=== PATIENT | female | born 1965 | race Hispanic/Latino ===

== ENCOUNTER → 2018-03-02 | Day surgery (SDC) | payer OTHER ==
[2018-02-27 16:59] LABS: BASOPHILS # (AUTO) 0.1 (0.0-0.1); BASOPHILS % 0.4 % (0.0-1.0); EOSINOPHILS # (AUTO) 0.5 (0.0-0.4); EOSINOPHILS % 3.4 % (0.0-6.0); HEMATOCRIT 43.8 % (34.2-44.1); HEMOGLOBIN 13.8 g/dL (12.0-16.0); LYMPHOCYTES # (AUTO) 2.4 (1.0-3.2); LYMPHOCYTES % 17.4 % (18.0-39.1); MEAN CORPUSCULAR HEMOGLOBIN 27.7 pg (28-32); MEAN CORPUSCULAR HGB CONC 31.5 g/dL (31-35); MONOCYTES # (AUTO) 1.1 (0.2-0.8); MONOCYTES % 7.9 % (4.4-11.3); NEUTROPHILS # (AUTO) 9.7 (2.1-6.9); NEUTROPHILS % 70.5 % (38.7-80.0); PLATELET COUNT 362 x10e3/uL (140-360); RED BLOOD COUNT 4.98 x10e6/uL (3.6-5.1); RED CELL DISTRIBUTION WIDTH 14.5 % (11.7-14.4)
[~2018-03-02] MED LIST: ASPIR 8181 MG PO; ATORVASTATIN CA20 MG PO; FENTANYL CITRATE/PF 100MCG/2 ML INJ ONE; HYOSCYAMINE SULFATE 0.5 MG/ML INJ ONE; INVOKANA PO; IRBESARTAN-HCT1 EACH PO; JANUMET 50-1,01 EACH PO; LANTUS 3ML100 UNITS/ SC; LYRICA75 MG PO; METOPROLOL SUCC50 MG PO; MIDAZOLAM HCL 5MG/ML 2ML VIAL ONE; PLAVIX75 MG PO; PROPOFOL IV EMULSION 10 MG/ML 50 ML VIAL ONE
--- OUTSIDE RECORDS SUMMARY | 2018-03-02 11:13 | XMS REPORT | Continuity of Care Document ---
Author Author [facility] [place] [place] Organization [facility] [place] [place] Address Unknown Phone Unavailable Care Team Providers Care Etiquette Coach Name Role Phone MD Anthony, David WEST Unavailable Insurance Providers Payer name Policy type / Coverage type Policy ID Covered libertarian ID Policy [place] AETNA AETNA Encounters Encounter Performer Location Date Office Visit David Cruz MD [facility] Sep 02, 2013 Problems Problem Effective Dates Problem Status FH DIABETES - DM Active FH STROKE Active HYPERCHOLESTEROLEMIA Active HYPERTENSION - BENIGN ESSENTIAL Active POLYNEUROPATHY IN DIABETES Jul 01, 2013 Active 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 normal aspiration Sep 02, 2013 diabetic foot check yes Medications Medication Instructions Start Date Status VALSARTAN-HYDROCHLOROTHIAZIDE 320-25 MG TABS One by mouth daily for high blood pressure Jul 01, 2013 Active AMMONIUM LACTATE 12 % CREA apply to callous each night Jul 01, 2013 Active PRAVASTATIN SODIUM 40 MG TABS 1/2 po qd Jul 01, 2013 Inactive ATORVASTATIN CALCIUM 20 MG TABS 1 tablet each night Jul 04, 2013 Active LANTUS SOLOSTAR 100 UNIT/ML SOLN 10 units subcutaneous at bedtime. Titrate as directed Jul 11, 2013 Active BD PEN NEEDLE MINI U/F 31G X 5 MM MISC Use as directed Jul 11, 2013 Active GABAPENTIN 300 MG CAPS Take one capsule by mouth each night for nerve pain Sep 02, 2013 Active INVOKANA 300 MG TABS One by mouth daily for diabetes Sep 02, 2013 Active JANUMET 50-1000 MG TABS 1 po bid Sep 02, 2013 Active Immunizations Vaccine Date Status pneumococcal immunization administered Jul 01, 2013 completed dT (Diphtheria and Tetanus) booster given May 09, 2012 completed Vital Signs Date Description Test Result Jul 01, 2013 height E&M - 8302-2 HEIGHT 62 in Jul 01, 2013 weight E&M - 3141-9 WEIGHT 211 lb Jul 01, 2013 respiratory rate E&M - 9279-1 RESP RATE 18 /min Jul 01, 2013 temperature E&M TEMPERATURE 98.7 deg f Jul 01, 2013 pulse rate E&M - 8867-4 PULSE RATE 93 /min Jul 01, 2013 blood pressure, systolic - 8480-6 BP SYSTOLIC 143 mm Hg Jul 01, 2013 blood pressure, diastolic - 8462-4 BP DIASTOLIC 89 mm Hg Sep 02, 2013 weight E&M - 3141-9 WEIGHT 209 lb Sep 02, 2013 temperature E&M TEMPERATURE 98.9 deg f Sep 02, 2013 blood pressure, systolic - 8480-6 BP SYSTOLIC 135 mm Hg Sep 02, 2013 blood pressure, diastolic - 8462-4 BP DIASTOLIC 74 mm Hg Sep 02, 2013 pulse rate E&M - 8867-4 PULSE RATE 79 /min Results Date Description Test Name Value Reference Interpretation Status Jul 01, 2013 hemoglobin, blood HGB 13.7 g/dL 12.0-16.0 Jul 01, 2013 hematocrit, blood HCT 41.3 % 36.0-48.0 Jul 01, 2013 platelet count PLATELETS 393 K/CMM /mm3 133-450 Jul 01, 2013 urine color UA COLOR Yellow null Yellow Jul 01, 2013 bacteria, urine microscopy BACTERIA URN Occasional null None Seen Jul 01, 2013 hemoglobin A1C, blood, as % of total hemoglobin HGBA1C 11.9 % <=5.6 High Jul 01, 2013 thyroid stimulating hormone, serum TSH 4.130 uIU/mL 0.360-3.740 High Jul 01, 2013 cholesterol, serum CHOLESTEROL 216 mg/dl <=199 High Jul 01, 2013 triglyceride, serum, fasting TRIGLYCERIDE 125 mg/dl <=149 Jul 01, 2013 HDL cholesterol, serum HDL 44 mg/dl >=61 Low Jul 01, 2013 LDL cholesterol, serum LDL 147 mg/dl <=99 High Jul 01, 2013 sodium, serum SODIUM 135 MEQ/L mmol/L 135-145 Jul 01, 2013 potassium, serum POTASSIUM 4.7 MEQ/L mmol/L 3.5-5.1 Jul 01, 2013 creatinine, serum CREATININE 0.5 mg/dL 0.5-1.4 Jul 01, 2013 urea nitrogen, blood BUN 18 mg/dL 7-Jul 01, 2013 urea nitrogen/creatinine ratio, serum BUN/CREAT 36 null 6-25 High Jul 01, 2013 albumin, serum ALBUMIN 4.3 g/dL 3.5-5.0 Jul 01, 2013 calcium, serum CALCIUM 9.5 mg/dL 8.5-10.5 Jul 01, 2013 alanine aminotransferase (SGPT), serum SGPT (ALT) 36 U/L 0-65 Jul 01, 2013 aspartate aminotransferase (SGOT), serum SGOT (AST) 15 U/L 0-37 Jul 01, 2013 alkaline phosphatase, serum ALK PHOS 141 U/L 39-136 High Jul 01, 2013 thyroxine, serum, free T4, FREE 0.97 ng/dl 0.76-1.46 Sep 02, 2013 hemoglobin A1C, blood, as % of total hemoglobin HGBA1C 12.4 % <=5.6 High Sep 02, 2013 cholesterol, serum CHOLESTEROL 173 mg/dl <=199 Sep 02, 2013 triglyceride, serum, fasting TRIGLYCERIDE 144 mg/dl <=149 Sep 02, 2013 HDL cholesterol, serum HDL 44 mg/dl >=61 Low Sep 02, 2013 LDL cholesterol, serum LDL 100 mg/dl <=99 High Sep 02, 2013 sodium, serum SODIUM 135 MEQ/L mmol/L 135-145 Sep 02, 2013 potassium, serum POTASSIUM 4.1 MEQ/L mmol/L 3.5-5.1 Sep 02, 2013 creatinine, serum CREATININE 0.5 mg/dL 0.5-1.4 Sep 02, 2013 urea nitrogen, blood BUN 14 mg/dL 7-Sep 02, 2013 urea nitrogen/creatinine ratio, serum BUN/CREAT 28 null 6-25 High Sep 02, 2013 albumin, serum ALBUMIN 4.3 g/dL 3.5-5.0 Sep 02, 2013 calcium, serum CALCIUM 9.7 mg/dL 8.5-10.5 Sep 02, 2013 alanine aminotransferase (SGPT), serum SGPT (ALT) 37 U/L 0-65 Sep 02, 2013 aspartate aminotransferase (SGOT), serum SGOT (AST) 15 U/L 0-37 Sep 02, 2013 alkaline phosphatase, serum ALK PHOS 149 U/L 39-136 High
--- OUTSIDE RECORDS SUMMARY | 2018-03-02 11:13 | XMS REPORT | Continuity of Care Document ---
Author Author [facility] Address Unknown Phone Unavailable Problems Problem Status Onset Date Classification Date Reported Comments Source LONG-TERM USE OF INSULIN Active 08/06/2014 Condition 08/06/2014 [facility] OSTEOARTHRITIS, KNEES, BILATERAL Active 08/06/2014 Condition 08/06/2014 [facility] DIABETES MELLITUS WITH PERIPHERAL CIRCULATORY DISORDERS, TYPE II OR UNSPECIFIED TYPE, NOT STATED UNCONTROLLED Active 08/06/2014 Condition 08/06/2014 [facility] UNSPECIFIED ESSENTIAL HYPERTENSION Active 06/11/2014 08/03/2014 [facility] DIAB W/NEURO MANIFEST TYPE II OR UNSPEC UNCNTRL Active 06/11/2014 08/03/2014 [facility] 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 Active 06/11/2014 08/03/2014 [facility] MUSCLE WEAKNESS Active 06/11/2014 08/03/2014 [facility] AFTERCARE FOLLOW SURG CIRC SYS NEC Active 06/10/2014 08/03/2014 [facility] COR ATHEROSLERO SAUK-SUIATTLE COR ART Active 06/06/2014 06/12/2014 [facility] COR ATHEROSLERO AUTOL VEIN BYPS GFT Active 05/26/2014 08/03/2014 [facility] OTHER AND UNSPECIFIED HYPERLIPIDEMIA Active 05/26/2014 08/03/2014 [facility] MORBID OBESITY Active 05/26/2014 08/03/2014 [facility] DIABETES MELLITUS, TYPE II, WITH RETINOPATHY Active 05/23/2014 Condition 08/06/2014 [facility] NONPROLIFERATIVE DIABETIC RETINOPATHY NOS Active 05/23/2014 Condition 08/06/2014 [facility] CHEST PAIN UNSPECIFIED Active 05/16/2014 Condition 05/16/2014 [facility] CORONARY ATHEROSCLEROSIS OF UNSPECIFIED TYPE OF BYPASS GRAFT Active 05/16/2014 Condition 08/06/2014 [facility] HYPERTENSIVE HEART DISEASE, BENIGN, WITHOUT HEART FAILURE Active 04/03/2014 Condition 08/06/2014 [facility] ABDOMINAL PAIN, RIGHT UPPER QUADRANT Active 12/20/2013 Condition 08/06/2014 [facility] CARPAL TUNNEL SYNDROME Active 12/20/2013 Condition 08/06/2014 [facility] ONYCHOMYCOSIS, TOENAILS Inactive 12/20/2013 Condition 08/06/2014 [facility] UNSPECIFIED VENOUS INSUFFICIENCY Active 09/02/2013 Condition 08/06/2014 [facility] MICROALBUMINURIA Active 07/23/2013 Condition 08/06/2014 [facility] DIAB W/RENAL MANIFESTS TYPE II/UNS NOT UNCNTRL Active 07/23/2013 Condition 08/06/2014 [facility] UNSPECIFIED HYPOTHYROIDISM Active 07/23/2013 Condition 08/06/2014 [facility] POLYNEUROPATHY IN DIABETES Active 07/01/2013 Condition 08/06/2014 [facility] DIAB W/NEURO MANIFESTS TYPE II/UNS NOT UNCNTRL Active 07/01/2013 Condition 08/06/2014 [facility] UNSPECIFIED SLEEP APNEA Active 07/01/2013 Condition 08/06/2014 [facility] CALLUS, FOOT Active 07/01/2013 Condition 08/06/2014 [facility] MAMMOGRAM, ABNORMAL, RIGHT Active 09/28/2012 Condition 08/06/2014 [facility] UNSPECIFIED VITAMIN D DEFICIENCY Active 04/03/2012 Condition 08/06/2014 [facility] PERS HX NONCOMPLIANCE W/MED TX PRS HAZARDS HLTH Active 04/03/2012 Condition 08/06/2014 [facility] FH DIABETES - DM Inactive Condition 08/06/2014 [facility] FH STROKE Inactive Condition 08/06/2014 [facility] HYPERCHOLESTEROLEMIA Active Condition 08/06/2014 [facility] HYPERTENSION - BENIGN ESSENTIAL Active Condition 05/16/2014 [facility] Medications Medication Details Route Status Patient Instructions Ordering Provider Order Date Source IRBESARTAN 150 MG TABS one by mouth daily for high blood pressure Active 08/06/2014 [facility] TEST STRIPS AND LANCETS For use with the glucometer to check sugars twice a day as directed. Dx: 250.00 diabetes; V58.67 Insulin use Active 08/06/2014 [facility] VOLTAREN 1 % GEL Apply 4 grams to the painful KNEE four times a day Active 08/06/2014 [facility] CLOPIDOGREL BISULFATE 75 MG TABS Active 08/06/2014 [facility] FUROSEMIDE 40 MG TABS Active 08/06/2014 [facility] METOPROLOL TARTRATE 50 MG TABS Active 08/06/2014 [facility] atorvastatin oral Active 06/10/2014 [facility] valsartan oral Active 06/10/2014 [facility] clopidogrel oral Active 06/10/2014 [facility] Nitrostat sublingual Active 06/10/2014 [facility] metoprolol tartrate oral Active 06/10/2014 [facility] Ultram oral Active 06/10/2014 [facility] gabapentin oral Active 06/10/2014 [facility] Lantus subcutaneous Active 06/10/2014 [facility] Aspirin Low Dose oral Active 06/10/2014 [facility] Janumet oral Active 06/10/2014 [facility] Invokana oral Active 06/10/2014 [facility] Doc-Q-Lace oral TAKE ONE CAP BY MOUTH TWICE DAILY NEEDED FOR CONSTIPATION Active 06/06/2014 [facility] INVOKANA 300 MG TABS one by mouth daily Active 05/16/2014 [facility] ATORVASTATIN CALCIUM 20 MG TABS 1 tablet nightly Active 05/16/2014 [facility] JANUMET XR 50-1000 MG [id number] 1 tablet twice daily Active 05/16/2014 [facility] DIOVAN HCT 320-25 MG TABS 1 tablet daily for high blood pressure No Longer Active 05/16/2014 [facility] LANTUS SOLOSTAR 100 UNIT/ML SOPN 22 units every night. titrate as directed Active 05/16/2014 [facility] ASPIRIN ADULT LOW STRENGTH 81 MG TBEC one by mouth daily for heart Active 05/16/2014 [facility] NITROSTAT 0.4 MG SUBL one tablet disolved under the tongue as needed for chest pain, may repeat every 5 minutes if needed x 3 total doses Active 05/16/2014 [facility] TERBINAFINE HCL 250 MG TABS 1 tablet daily for 12 weeks Active 12/20/2013 [facility] TERBINAFINE HCL 250 MG TABS 1 tablet daily for 12 weeks No Longer Active 12/20/2013 [facility] GABAPENTIN 300 MG CAPS Take one capsule by mouth each night for nerve pain Active 09/02/2013 [facility] INVOKANA 300 MG TABS One by mouth daily for diabetes No Longer Active 09/02/2013 [facility] JANUMET 50-1000 MG TABS 1 po bid No Longer Active 09/02/2013 [facility] GABAPENTIN 300 MG CAPS Take one capsule by mouth each night for nerve pain Active 09/02/2013 [facility] INVOKANA 300 MG TABS One by mouth daily for diabetes Active 09/02/2013 [facility] GABAPENTIN 300 MG CAPS Take one capsule by mouth each night for nerve pain Active 09/02/2013 [facility] GABAPENTIN 400 MG CAPS 2 capsules by mouth each night as needed for nerve pain. Active 09/02/2013 [facility] LANTUS SOLOSTAR 100 UNIT/ML SOLN 10 units subcutaneous at bedtime. Titrate as directed Active 07/11/2013 [facility] BD PEN NEEDLE MINI U/F 31G X 5 MM MISC Use as directed Active 07/11/2013 [facility] LANTUS SOLOSTAR 100 UNIT/ML SOLN 22 units subcutaneous at bedtime. Titrate as directed Active 07/11/2013 [facility] LANTUS SOLOSTAR 100 UNIT/ML SOLN 22 units subcutaneous at bedtime. Titrate as directed No Longer Active 07/11/2013 [facility] ATORVASTATIN CALCIUM 20 MG TABS 1 tablet each night No Longer Active 07/04/2013 [facility] ATORVASTATIN CALCIUM 20 MG TABS 1 tablet each night Active 07/04/2013 [facility] GLYBURIDE MICRONIZED 6 MG TABS 1 po bid Active 07/01/2013 [facility] PRAVASTATIN SODIUM 40 MG TABS 1/2 po qd No Longer Active 07/01/2013 [facility] JANUMET 50-1000 MG TABS 1 po bid Active 07/01/2013 [facility] VALSARTAN-HYDROCHLOROTHIAZIDE 320-25 MG TABS One by mouth daily for high blood pressure No Longer Active 07/01/2013 [facility] AMMONIUM LACTATE 12 % CREA apply to callous each night No Longer Active 07/01/2013 [facility] Allergies, Adverse Reactions, Alerts Substance Category Reaction Severity Reaction type Status Date Reported Comments Source NKA Propensity to adverse reactions Home Health Immunizations Immunization Date Given Site Status Last Updated Comments Source pneumococcal immunization administered 07/01/2013 completed [facility] dT (Diphtheria and Tetanus) booster given 05/09/2012 completed [facility] Results Order Name Results Value Reference Range Date Interpretation Comments Source Chemistry HGBA1C 6.8 % - 5.6 08/06/2014 [facility] Chemistry HGBA1C 9.9 % - 5.6 05/16/2014 [facility] Chemistry CHOLESTEROL 175 mg/dl - 199 05/16/2014 [facility] TRIGLYCERIDE 142 mg/dl - 149 05/16/2014 [facility] Chemistry HDL 48 mg/dl >=61 05/16/2014 [facility] LDL 99 mg/dl - 99 05/16/2014 [facility] Chemistry SODIUM 137 MEQ/L mmol/L 135 - 145 05/16/2014 [facility] Chemistry POTASSIUM 4.5 MEQ/L mmol/L 3.5 - 5.1 05/16/2014 [facility] Chemistry CREATININE 0.5 mg/dL 0.5 - 1.4 05/16/2014 [facility] Chemistry BUN 16 mg/dL 7 - 22 05/16/2014 [facility] Chemistry BUN/CREAT 32 6 - 25 05/16/2014 [facility] Chemistry ALBUMIN 4.2 g/dL 3.5 - 5.0 05/16/2014 [facility] Chemistry CALCIUM 9.6 mg/dL 8.5 - 10.5 05/16/2014 [facility] Chemistry SGPT (ALT) 35 U/L 0 - 65 05/16/2014 [facility] Chemistry SGOT (AST) 17 U/L 0 - 37 05/16/2014 [facility] Chemistry ALK PHOS 136 U/L 39 - 136 05/16/2014 [facility] Chemistry MAGNESIUM 2.1 mg/dL 1.8 - 2.4 05/16/2014 [facility] Chemistry PO4 3.6 mg/dL 2.5 - 4.5 05/16/2014 [facility] Chemistry URIC ACID 4.3 mg/dL 2.5 - 7.0 05/16/2014 [facility] Chemistry TSH 2.970 uIU/mL 0.360 - 3.740 05/16/2014 [facility] Hematology HGB 14.3 g/dL 12.0 - 16.0 05/16/2014 [facility] Hematology HCT 42.9 % 36.0 - 48.0 05/16/2014 [facility] Hematology PLATELETS 332 K/CMM /mm3 133 - 450 05/16/2014 [facility] Chemistry HGBA1C 12.4 % - 5.6 09/02/2013 [facility] Chemistry CHOLESTEROL 173 mg/dl - 199 09/02/2013 [facility] Chemistry TRIGLYCERIDE 144 mg/dl - 149 09/02/2013 [facility] Chemistry HGBA1C 12.4 % - 5.6 09/02/2013 [facility] Chemistry CHOLESTEROL 173 mg/dl - 199 09/02/2013 [facility] Chemistry TRIGLYCERIDE 144 mg/dl - 149 09/02/2013 [facility] Chemistry HDL 44 mg/dl >=61 09/02/2013 [facility] Chemistry LDL 100 mg/dl - 99 09/02/2013 [facility] Chemistry SODIUM 135 MEQ/L mmol/L 135 - 145 09/02/2013 [facility] Chemistry POTASSIUM 4.1 MEQ/L mmol/L 3.5 - 5.1 09/02/2013 [facility] Chemistry CREATININE 0.5 mg/dL 0.5 - 1.4 09/02/2013 [facility] Chemistry BUN 14 mg/dL 7 - 22 09/02/2013 [facility] Chemistry BUN/CREAT 28 6 - 25 09/02/2013 [facility] Chemistry ALBUMIN 4.3 g/dL 3.5 - 5.0 09/02/2013 [facility] Chemistry CALCIUM 9.7 mg/dL 8.5 - 10.5 09/02/2013 [facility] Chemistry SGPT (ALT) 37 U/L 0 - 65 09/02/2013 [facility] Chemistry SGOT (AST) 15 U/L 0 - 37 09/02/2013 [facility] Chemistry ALK PHOS 149 U/L 39 - 136 09/02/2013 [facility] Chemistry HGBA1C 11.9 % - 5.6 07/01/2013 [facility] Chemistry TSH 4.130 uIU/mL 0.360 - 3.740 07/01/2013 [facility] Chemistry CHOLESTEROL 216 mg/dl - 199 07/01/2013 [facility] Chemistry HGBA1C 11.9 % - 5.6 07/01/2013 [facility] Chemistry TSH 4.130 uIU/mL 0.360 - 3.740 07/01/2013 [facility] Chemistry CHOLESTEROL 216 mg/dl - 199 07/01/2013 [facility] Chemistry TRIGLYCERIDE 125 mg/dl - 149 07/01/2013 [facility] Chemistry HDL 44 mg/dl >=61 07/01/2013 [facility] Chemistry LDL 147 mg/dl - 99 07/01/2013 [facility] Chemistry SODIUM 135 MEQ/L mmol/L 135 - 145 07/01/2013 [facility] Chemistry POTASSIUM 4.7 MEQ/L mmol/L 3.5 - 5.1 07/01/2013 [facility] Chemistry CREATININE 0.5 mg/dL 0.5 - 1.4 07/01/2013 [facility] Chemistry BUN 18 mg/dL 7 - 22 07/01/2013 [facility] Chemistry BUN/CREAT 36 6 - 25 07/01/2013 [facility] Chemistry ALBUMIN 4.3 g/dL 3.5 - 5.0 07/01/2013 [facility] Chemistry CALCIUM 9.5 mg/dL 8.5 - 10.5 07/01/2013 [facility] Chemistry SGPT (ALT) 36 U/L 0 - 65 07/01/2013 [facility] Chemistry SGOT (AST) 15 U/L 0 - 37 07/01/2013 [facility] Chemistry ALK PHOS 141 U/L 39 - 136 07/01/2013 [facility] Chemistry T4, FREE 0.97 ng/dl 0.76 - 1.46 07/01/2013 [facility] Hematology HGB 13.7 g/dL 12.0 - 16.0 07/01/2013 [facility] Hematology HCT 41.3 % 36.0 - 48.0 07/01/2013 [facility] Hematology PLATELETS 393 K/CMM /mm3 133 - 450 07/01/2013 [facility] Urinalysis UA COLOR Yellow 07/01/2013 [facility] Urinalysis BACTERIA URN Occasional 07/01/2013 [facility] Urinalysis UA COLOR Yellow 07/01/2013 [facility] Urinalysis BACTERIA URN Occasional 07/01/2013 [facility] Vital Signs Vital Sign Value Date Comments Source Weight 204 08/06/2014 [facility] Systolic (mm Hg) 153 08/06/2014 [facility] Diastolic (mm Hg) 78 08/06/2014 [facility] Heart Rate 102 08/06/2014 [facility] Temperature Oral (F) 97.3 F 08/06/2014 [facility] Weight 198 08/01/2014 [facility] Systolic (mm Hg) 100 08/01/2014 [facility] Diastolic (mm Hg) 60 08/01/2014 [facility] Heart Rate 90 08/01/2014 [facility] Temperature Oral (F) 97.1 F 08/01/2014 [facility] Systolic (mm Hg) 120 06/11/2014 [facility] Diastolic (mm Hg) 70 06/11/2014 [facility] Heart Rate 94 06/11/2014 [facility] Temperature Oral (F) 97.6 F 06/11/2014 [facility] Weight 209 05/16/2014 [facility] Temperature Oral (F) 97.8 F 05/16/2014 [facility] Systolic (mm Hg) 143 05/16/2014 [facility] Diastolic (mm Hg) 69 05/16/2014 [facility] Heart Rate 80 05/16/2014 [facility] Weight 209 12/20/2013 [facility] Temperature Oral (F) 96.1 F 12/20/2013 [facility] Systolic (mm Hg) 139 12/20/2013 [facility] Diastolic (mm Hg) 81 12/20/2013 [facility] Heart Rate 82 12/20/2013 [facility] Weight 209 09/02/2013 [facility] Temperature Oral (F) 98.9 F 09/02/2013 [facility] Systolic (mm Hg) 135 09/02/2013 [facility] Diastolic (mm Hg) 74 09/02/2013 [facility] Heart Rate 79 09/02/2013 [facility] Height 62 07/01/2013 [facility] Weight 211 07/01/2013 [facility] Respitory Rate 18 07/01/2013 [facility] Temperature Oral (F) 98.7 F 07/01/2013 [facility] Heart Rate 93 07/01/2013 [facility] Systolic (mm Hg) 143 07/01/2013 [facility] Diastolic (mm Hg) 89 07/01/2013 [facility] Encounters Location Location Details Encounter Type Encounter Number Reason For Visit Attending Provider ADM Date DC Date Status Source [facility] Office Visit [id number] David Cruz MD 07/01/2013 07/01/2013 Medical [facility] Lab Report [id number] David Cruz MD 07/01/2013 07/01/2013 Medical [facility] Lab Report [id number] David Cruz MD 07/10/2013 07/10/2013 Medical [facility] [place] Office Visit [id number] David Cruz MD 09/02/2013 09/02/2013 Medical [facility] Lab Report [id number] David Cruz MD 09/02/2013 09/02/2013 Medical [facility] [place] Office Visit [id number] David Cruz MD 12/20/2013 12/20/2013 Medical [facility] [place] Office Visit [id number] David Cruz MD 05/16/2014 05/16/2014 [facility] Lab Report [id number] David Cruz MD 05/16/2014 05/16/2014 [facility] Outpatient [id number] [place] DAVIS 06/10/2014 08/01/2014 [facility] Lab Report [id number] David Cruz MD 08/05/2014 08/05/2014 [facility] Office Visit [id number] David Cruz MD 08/06/2014 08/06/2014 [facility] Lab Report [id number] David Cruz MD 08/06/2014 08/06/2014 [facility] Procedures Procedure Code Date Perfomer Comments Source diabetic foot check [id number] 08/06/2014 yes [facility] diabetic foot check [id number] 09/02/2013 yes [facility] diabetic foot check [id number] 07/01/2013 yes [facility] mammogram [id number] 09/28/2012 abnl screen, abnl dx&u/s. normal aspiration [facility]
--- OUTSIDE RECORDS SUMMARY | 2018-03-02 11:13 | XMS REPORT | Continuity of Care Document ---
Author Author [facility] Organization [facility] Address Unknown Phone Unavailable Care Team Providers Care Rn Bone Marrow Transplant Name Role Phone MD Anthony, David WEST Unavailable Insurance Providers Payer name Policy type / Coverage type Policy ID Covered alliance party ID Policy [place] AET[employer] AETNA Encounters Encounter Performer Location Date Office Visit David Cruz MD [facility] Jul 01, 2013 Problems Problem Effective Dates Problem Status FH DIABETES - DM Active FH STROKE Active HYPERCHOLESTEROLEMIA Active HYPERTENSION - BENIGN ESSENTIAL Active POLYNEUROPATHY IN DIABETES Jul 01, 2013 Active DIAB W/NEURO MANIFESTS TYPE II/UNS NOT UNCNTRL Jul 01, 2013 Active UNSPECIFIED SLEEP APNEA Jul 01, 2013 Active CALLUS, FOOT Jul 01, 2013 Active Procedures Date Description Comments Jul 01, 2013 smoking status former smoker Jul 01, 2013 diabetic foot check yes Medications Medication Instructions Start Date Status GLYBURIDE MICRONIZED 6 MG TABS 1 po bid Jul 01, 2013 Active PRAVASTATIN SODIUM 40 MG TABS 1/2 po qd Jul 01, 2013 Active JANUMET 50-1000 MG TABS 1 po bid Jul 01, 2013 Active VALSARTAN-HYDROCHLOROTHIAZIDE 320-25 MG TABS One by mouth daily for high blood pressure Jul 01, 2013 Active AMMONIUM LACTATE 12 % CREA apply to callous each night Jul 01, 2013 Active Immunizations Vaccine Date Status pneumococcal immunization administered Jul 01, 2013 completed Vital Signs Date Description Test Result [...] - 8462-4 BP DIASTOLIC 89 mm Hg Results Date Description Test Name Value Reference [...] 2013 urea nitrogen, blood BUN 18 mg/dL 7-22 Jul 01, 2013 urea nitrogen/creatinine ratio, serum BUN/CREAT [...]
--- OUTSIDE RECORDS SUMMARY | 2018-03-02 11:13 | XMS REPORT | Continuity of Care Document ---
Author Author [facility] Organization [facility] Address Unknown Phone Unavailable Care Team Providers Care Can Vacuum Tester Name Role Phone MD Anthony, David WEST Unavailable Insurance Providers Payer name Policy type / Coverage type Policy ID Covered green party ID Policy [place] AETNA AETNA Encounters Encounter Performer Location Date Lab Report David Cruz MD [facility] Sep 02, 2013 Problems Problem Effective Dates [...]
--- OUTSIDE RECORDS SUMMARY | 2018-03-02 11:13 | XMS REPORT | Continuity of Care Document ---
Author Author [facility] Organization [facility] Address Unknown Phone Unavailable Care Team Providers Care Lieutenant Governor Name Role Phone MD Anthony, David WEST Unavailable Insurance Providers Payer name Policy type / Coverage type Policy ID Covered libertarian ID Policy [place] AET[employer] AETNA Encounters Encounter Performer Location Date Lab Report David Cruz MD [facility] [place] Jul 10, 2013 Problems Problem Effective Dates Problem Status [...] 1 po bid Jul 01, 2013 Active JANUMET 50-1000 MG [...] tablet each night Jul 04, 2013 Active Immunizations Vaccine Date Status pneumococcal [...]
--- OUTSIDE RECORDS SUMMARY | 2018-03-02 11:13 | XMS REPORT | Continuity of Care Document ---
Author Author [facility] Organization [facility] Address Unknown Phone Unavailable Care Team Providers Care Visitor Services Assistant Name Role Phone MD Anthony, David WEST Unavailable Insurance Providers Payer name Policy type / Coverage type Policy ID Covered libertarian ID Policy [place] AET[employer] AETNA Encounters Encounter Performer Location Date Lab Report David Cruz MD [facility] [place] Jul 01, 2013 Problems Problem Effective Dates [...] callous each night Jul 01, 2013 Active ATORVASTATIN CALCIUM 20 MG TABS 1 tablet [...]
--- OUTSIDE RECORDS SUMMARY | 2018-03-02 11:13 | XMS REPORT | Continuity of Care Document ---
Author Author [facility] Organization [facility] Address Unknown Phone Unavailable Care Team Providers Care Armoured Corps Officer Name Role Phone MD Anthony, David WEST Unavailable Insurance Providers Payer name Policy type / Coverage type Policy ID Covered libertarian ID Policy [place] AET[employer] AETNA Encounters Encounter Performer Location Date Office Visit David Cruz MD [facility] Dec 20, 2013 Problems Problem Effective Dates Problem Status [...] UNSPECIFIED VENOUS INSUFFICIENCY Sep 02, 2013 Active ABDOMINAL PAIN, RIGHT UPPER QUADRANT Dec 20, 2013 Active CARPAL TUNNEL SYNDROME Dec 20, 2013 Active ONYCHOMYCOSIS, TOENAILS Dec 20, 2013 Active Procedures Date Description Comments Jul 01, 2013 smoking status former smoker Jul 01, 2013 diabetic foot check yes Sep 28, 2012 mammogram abnl screen, abnl dx&u/s. normal aspiration Sep 02, 2013 diabetic foot check yes Dec 20, 2013 smoking status Former smoker Medications Medication Instructions Start Date Status VALSARTAN-HYDROCHLOROTHIAZIDE 320-25 MG TABS One by mouth daily for high blood pressure Jul 01, 2013 Active AMMONIUM LACTATE 12 % CREA apply to callous each night Jul 01, 2013 Inactive PRAVASTATIN SODIUM 40 MG TABS 1/2 po qd Jul 01, 2013 Inactive ATORVASTATIN CALCIUM 20 MG TABS 1 tablet each night Jul 04, 2013 Active BD PEN NEEDLE MINI U/F 31G X 5 MM MISC Use as directed Jul 11, 2013 Active GABAPENTIN 300 MG CAPS Take one capsule by mouth each night for nerve pain Sep 02, 2013 Active INVOKANA 300 MG TABS One by mouth daily for diabetes Sep 02, 2013 Active JANUMET 50-1000 MG TABS 1 po bid Sep 02, 2013 Active LANTUS SOLOSTAR 100 UNIT/ML SOLN 22 units subcutaneous at bedtime. Titrate as directed Jul 11, 2013 Active TERBINAFINE HCL 250 MG TABS 1 tablet daily for 12 weeks Dec 20, 2013 Active Immunizations Vaccine Date Status pneumococcal [...] E&M - 8867-4 PULSE RATE 79 /min Dec 20, 2013 weight E&M - 3141-9 WEIGHT 209 lb Dec 20, 2013 temperature E&M TEMPERATURE 96.1 deg f Dec 20, 2013 blood pressure, systolic - 8480-6 BP SYSTOLIC 139 mm Hg Dec 20, 2013 blood pressure, diastolic - 8462-4 BP DIASTOLIC 81 mm Hg Dec 20, 2013 pulse rate E&M - 8867-4 PULSE RATE 82 /min Results Date Description Test Name Value [...] 2013 urea nitrogen, blood BUN 14 mg/dL 7-22 Sep 02, 2013 urea nitrogen/creatinine ratio, serum BUN/CREAT [...]
--- OUTSIDE RECORDS SUMMARY | 2018-03-02 11:14 | XMS REPORT | Clinical Summary ---
Author Author [facility] Address Unknown Phone Unavailable Care Team Providers Care Braille Typist Name Role Phone PRINCE GORE Unavailable Unavailable HI DAVIS Unavailable Unavailable Payers Payer Name Policy Type Policy Number Effective Date Expiration Date [facility] [id number] Problems Condition Name Condition Details Condition Category Status Onset Date Resolution Date Last Treatment Date Treating Clinician Comments AFTERCARE FOLLOW SURG CIRC SYS NEC Active 2014-06-10 00:00:00 UNSPECIFIED ESSENTIAL HYPERTENSION Active 2014-06-11 00:00:00 DIAB W/NEURO MANIFEST TYPE II OR UNSPEC UNCNTRL Active 2014-06-11 00:00:00 POLYNEUROPATHY IN DIABETES Active 2014-06-11 00:00:00 COR ATHEROSLERO AUTOL VEIN BYPS GFT Active 2014-05-26 00:00:00 OTHER AND UNSPECIFIED HYPERLIPIDEMIA Active 2014-05-26 00:00:00 MORBID OBESITY Active 2014-05-26 00:00:00 (AORTO)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 Medications Ordered Medication Name Filled Medication Name Start Date Stop Date Current Medication? Ordering Clinician Indication Dosage Frequency Signature (SIG) Comments Components atorvastatin oral 2014-06-10 00:00:00 Yes valsartan oral 2014-06-10 00:00:00 Yes clopidogrel oral 2014-06-10 00:00:00 Yes Nitrostat sublingual 2014-06-10 00:00:00 Yes Doc-Q-Lace oral 2014-06-06 00:00:00 Yes TAKE ONE CAP BY MOUTH TWICE DAILY NEEDED FOR CONSTIPATION metoprolol tartrate oral 2014-06-10 00:00:00 Yes Ultram oral 2014-06-10 00:00:00 Yes gabapentin oral 2014-06-10 00:00:00 Yes Lantus subcutaneous 2014-06-10 00:00:00 Yes Aspirin Low Dose oral 2014-06-10 00:00:00 Yes Janumet oral 2014-06-10 00:00:00 Yes Invokana oral 2014-06-10 00:00:00 Yes Medications Administered This patient has no known administered medications. Immunizations This patient has no known immunizations. Vital Signs Vital Name Observation Time Observation Value Comments Temperature 2014-08-01 09:32:44.000 97.1 [degF] Pulse 2014-08-01 09:32:53.000 90 /min O2 Saturation (%) 2014-08-01 09:32:58.000 98 % Pain 2014-07-16 08:47:02.000 5 Respirations 2014-08-01 09:42:08.000 18 /min Weight (lbs) 2014-08-01 09:41:24.000 198 Systolic Blood Pressure 2014-08-01 09:40:32.000 100 mm[Hg] Diastolic Blood Pressure 2014-08-01 09:40:32.000 60 mm[Hg] Procedures This patient has no known procedures. Plan of Care This patient has no known plan of care. Reason for Visit Instructions Encounters Start Date/Time End Date/Time Encounter Type Admission Type Attending [facility] Facility Care Department Encounter ID 2014-06-10 00:00:00 2014-08-01 00:00:00 Outpatient [facility]ION [facility] [id number] Results This patient has no known results.
--- OUTSIDE RECORDS SUMMARY | 2018-03-02 11:14 | XMS REPORT | Clinical Summary ---
Author Author [facility] Address Unknown Phone Unavailable Care Team Providers Care Tube Puller Name Role Phone PRINCE GORE Unavailable Unavailable HI DAVIS Unavailable Unavailable Payers Payer Name Policy Type Policy Number Effective Date Expiration Date [facility] [id number] Problems Condition Name Condition Details Condition Category Status Onset Date Resolution Date Last Treatment Date Treating Clinician Comments COR ATHEROSLERO [place] COR ART Active 2014-06-06 00:00:00 Allergies, Adverse Reactions, Alerts This patient has no known allergies or adverse reactions. Social History This patient has no known social history. Medications This patient has no known medications. Medications Administered This patient has no known administered medications. Immunizations This patient has no known immunizations. Vital Signs Vital Name Observation Time Observation Value Comments Temperature 2014-06-11 20:12:09.000 97.6 [degF] Pulse 2014-06-11 20:12:30.000 94 /min O2 Saturation (%) 2014-06-11 20:13:07.000 96 % Respirations 2014-06-11 20:12:42.000 18 /min Systolic Blood Pressure 2014-06-11 20:12:59.000 120 mm[Hg] Diastolic Blood Pressure 2014-06-11 20:12:59.000 70 mm[Hg] Procedures This patient has no known procedures. Plan of Care This patient has no known plan of care. Reason for Visit Instructions Encounters Start Date/Time End Date/Time Encounter Type Admission Type Attending Clinicians Care Facility Care Department Encounter ID 2014-06-11 00:00:00 2014-08-09 00:00:00 Outpatient [facility]MISSION [facility] [id number] Results This patient has no known results.
--- OUTSIDE RECORDS SUMMARY | 2018-03-02 11:14 | XMS REPORT | Continuity of Care Document ---
Author Author [facility] Organization [facility] Address Unknown Phone Unavailable Care Team Providers Care Coal Gasification Technician Name Role Phone MD Anthony, David WEST Unavailable Insurance Providers Payer name Policy type / Coverage type Policy ID Covered democrat ID Policy [place] AETNA AETNA AETNA Encounters Encounter Performer Location Date Office Visit David Cruz MD [facility] May 16, 2014 Problems Problem Effective Dates Problem Status FH [...] Active ONYCHOMYCOSIS, TOENAILS Dec 20, 2013 Active CHEST PAIN UNSPECIFIED May 16, 2014 Active Procedures Date Description Comments Jul 01, [...] for high blood pressure Jul 01, 2013 Inactive AMMONIUM LACTATE 12 % CREA apply to callous each night Jul 01, 2013 Inactive PRAVASTATIN SODIUM 40 MG TABS 1/2 po qd Jul 01, 2013 Inactive ATORVASTATIN CALCIUM 20 MG TABS 1 tablet each night Jul 04, 2013 Inactive BD PEN NEEDLE MINI U/F 31G X 5 MM MISC Use as directed Jul 11, 2013 Active GABAPENTIN 300 MG CAPS Take one capsule by mouth each night for nerve pain Sep 02, 2013 Active INVOKANA 300 MG TABS One by mouth daily for diabetes Sep 02, 2013 Inactive JANUMET 50-1000 MG TABS 1 po bid Sep 02, 2013 Inactive LANTUS SOLOSTAR 100 UNIT/ML SOLN 22 units subcutaneous at bedtime. Titrate as directed Jul 11, 2013 Inactive TERBINAFINE HCL 250 MG TABS 1 tablet daily for 12 weeks Dec 20, 2013 Inactive INVOKANA 300 MG TABS one by mouth daily May 16, 2014 Active ATORVASTATIN CALCIUM 20 MG TABS 1 tablet nightly May 16, 2014 Active JANUMET XR 50-1000 MG [id number] 1 tablet twice daily May 16, 2014 Active DIOVAN HCT 320-25 MG TABS 1 tablet daily for high blood pressure May 16, 2014 Active LANTUS SOLOSTAR 100 UNIT/ML SOPN 22 units every night. titrate as directed May 16, 2014 Active ASPIRIN ADULT LOW STRENGTH 81 MG TBEC one by mouth daily for heart May 16, 2014 Active NITROSTAT 0.4 MG SUBL one tablet disolved under the tongue as needed for chest pain, may repeat every 5 minutes if needed x 3 total doses May 16, 2014 Active Immunizations Vaccine Date Status pneumococcal immunization [...] E&M - 8867-4 PULSE RATE 82 /min May 16, 2014 weight E&M - 3141-9 WEIGHT 209 lb May 16, 2014 temperature E&M TEMPERATURE 97.8 deg f May 16, 2014 blood pressure, systolic - 8480-6 BP SYSTOLIC 143 mm Hg May 16, 2014 blood pressure, diastolic - 8462-4 BP DIASTOLIC 69 mm Hg May 16, 2014 pulse rate E&M - 8867-4 PULSE RATE 80 /min Results Date Description Test Name Value Reference Interpretation Status Jul 01, 2013 hemoglobin, blood HGB 13.7 g/dL 12.0-16.0 Jul 01, 2013 hematocrit, blood HCT 41.3 % 36.0-48.0 Jul 01, 2013 platelet count PLATELETS 393 K/CMM /mm3 133-450 May 16, 2014 hemoglobin, blood HGB 14.3 g/dL 12.0-16.0 May 16, 2014 hematocrit, blood HCT 42.9 % 36.0-48.0 May 16, 2014 platelet count PLATELETS 332 K/CMM /mm3 133-450 Jul 01, 2013 urine [...] 2013 urea nitrogen, blood BUN 14 mg/dL -Sep 02, 2013 urea nitrogen/creatinine ratio, serum BUN/CREAT [...] serum ALK PHOS 149 U/L 39-136 High May 16, 2014 hemoglobin A1C, blood, as % of total hemoglobin HGBA1C 9.9 % <=5.6 High May 16, 2014 cholesterol, serum CHOLESTEROL 175 mg/dl <=199 May 16, 2014 triglyceride, serum, fasting TRIGLYCERIDE 142 mg/dl <=149 May 16, 2014 HDL cholesterol, serum HDL 48 mg/dl >=61 Low May 16, 2014 LDL cholesterol, serum LDL 99 mg/dl <=99 May 16, 2014 sodium, serum SODIUM 137 MEQ/L mmol/L 135-145 May 16, 2014 potassium, serum POTASSIUM 4.5 MEQ/L mmol/L 3.5-5.1 May 16, 2014 creatinine, serum CREATININE 0.5 mg/dL 0.5-1.4 May 16, 2014 urea nitrogen, blood BUN 16 mg/dL 7-22 May 16, 2014 urea nitrogen/creatinine ratio, serum BUN/CREAT 32 null 6-25 High May 16, 2014 albumin, serum ALBUMIN 4.2 g/dL 3.5-5.0 May 16, 2014 calcium, serum CALCIUM 9.6 mg/dL 8.5-10.5 May 16, 2014 alanine aminotransferase (SGPT), serum SGPT (ALT) 35 U/L 0-65 May 16, 2014 aspartate aminotransferase (SGOT), serum SGOT (AST) 17 U/L 0-37 May 16, 2014 alkaline phosphatase, serum ALK PHOS 136 U/L 39-136 May 16, 2014 magnesium, serum MAGNESIUM 2.1 mg/dL 1.8-2.4 May 16, 2014 phosphate, serum PO4 3.6 mg/dL 2.5-4.5 May 16, 2014 uric acid, serum URIC ACID 4.3 mg/dL 2.5-7.0 May 16, 2014 thyroid stimulating hormone, serum TSH 2.970 uIU/mL 0.360-3.740
--- OUTSIDE RECORDS SUMMARY | 2018-03-02 11:14 | XMS REPORT | Continuity of Care Document ---
Author Author [facility] Organization [facility] Address Unknown Phone Unavailable Care Team Providers Care Internet Project Manager Name Role Phone MD Anthony, David WEST Unavailable Insurance Providers Payer name Policy type / Coverage type Policy ID Covered green party ID Policy [place] AET[employer] AETNA AETNA Encounters Encounter Performer Location Date Lab Report David Cruz MD [facility] August 06, 2014 Problems Problem Effective Dates Problem Status FH DIABETES - DM Inactive FH STROKE Inactive HYPERCHOLESTEROLEMIA Active HYPERTENSIVE HEART DISEASE, BENIGN, WITHOUT HEART FAILURE Active POLYNEUROPATHY IN DIABETES Jul 01, 2013 [...] 2013 Active ONYCHOMYCOSIS, TOENAILS Dec 20, 2013 Inactive CORONARY ATHEROSCLEROSIS OF UNSPECIFIED TYPE OF BYPASS GRAFT May 16, 2014 Active DIABETES MELLITUS, TYPE II, WITH RETINOPATHY May 23, 2014 Active NONPROLIFERATIVE DIABETIC RETINOPATHY NOS May 23, 2014 Active LONG-TERM (CURRENT) USE OF INSULIN August 06, 2014 Active OSTEOARTHRITIS, KNEES, BILATERAL August 06, 2014 Active DIABETES MELLITUS WITH PERIPHERAL CIRCULATORY DISORDERS, TYPE II OR UNSPECIFIED TYPE, NOT STATED UNCONTROLLED August 06, 2014 Active Procedures Date Description Comments Jul 01, 2013 smoking status former smoker Jul 01, 2013 diabetic foot check yes Sep 28, 2012 mammogram abnl screen, abnl dx&u/s. normal aspiration Sep 02, 2013 diabetic foot check yes Dec 20, 2013 smoking status Former smoker August 06, 2014 diabetic foot check yes Medications Medication Instructions [...] Use as directed Jul 11, 2013 Active INVOKANA 300 MG TABS One [...] 16, 2014 Active JANUMET XR 50-1000 MG [id number] 1 tablet twice daily May 16, 2014 Active LANTUS SOLOSTAR 100 [...] 3 total doses May 16, 2014 Active CLOPIDOGREL BISULFATE 75 MG TABS August 06, 2014 Active FUROSEMIDE 40 MG TABS August 06, 2014 Active METOPROLOL TARTRATE 50 MG TABS August 06, 2014 Active DIOVAN HCT 320-25 MG TABS 1 tablet daily for high blood pressure May 16, 2014 Inactive IRBESARTAN 150 MG TABS one by mouth daily for high blood pressure August 06, 2014 Active GABAPENTIN 400 MG CAPS 2 capsules by mouth each night as needed for nerve pain. Sep 02, 2013 Active TEST STRIPS AND LANCETS For use with the glucometer to check sugars twice a day as directed. Dx: 250.00 diabetes; V58.67 Insulin use August 06, 2014 Active VOLTAREN 1 % GEL Apply 4 grams to the painful KNEE four times a day August 06, 2014 Active Immunizations Vaccine Date Status pneumococcal immunization administered Jul 01, 2013 completed dT (Diphtheria and Tetanus) booster given May 09, 2012 completed Vital Signs Date Description Test Result Jul 01, 2013 height E&M - 8302-2 HEIGHT 62 in Jul 01, 2013 weight Darcy&M - 3141-9 WEIGHT 211 lb Jul 01, [...] RATE 82 /min May 16, 2014 weight Darcy&M - 3141-9 WEIGHT 209 lb May 16, 2014 temperature E&M TEMPERATURE 97.8 deg f May 16, 2014 blood pressure, systolic - 8480-6 BP SYSTOLIC 143 mm Hg May 16, 2014 blood pressure, diastolic - 8462-4 BP DIASTOLIC 69 mm Hg May 16, 2014 pulse rate E&M - 8867-4 PULSE RATE 80 /min August 06, 2014 weight E&M - 3141-9 WEIGHT 204 lb August 06, 2014 blood pressure, systolic - 8480-6 BP SYSTOLIC 153 mm Hg August 06, 2014 blood pressure, diastolic - 8462-4 BP DIASTOLIC 78 mm Hg August 06, 2014 pulse rate E&M - 8867-4 PULSE RATE 102 /min August 06, 2014 temperature E&M TEMPERATURE 97.3 deg f Results Date Description Test Name Value Reference [...] 2014 urea nitrogen, blood BUN 16 mg/dL 7-May 16, 2014 urea nitrogen/creatinine ratio, serum BUN/CREAT [...] stimulating hormone, serum TSH 2.970 uIU/mL 0.360-3.740 August 06, 2014 hemoglobin A1C, blood, as % of total hemoglobin HGBA1C 6.8 % <=5.6 High
--- OUTSIDE RECORDS SUMMARY | 2018-03-02 11:14 | XMS REPORT | Continuity of Care Document ---
Author Author [facility] Organization [facility] Address Unknown Phone Unavailable Care Team Providers Care Functional Architect Name Role Phone MD Anthony, David WEST Unavailable Insurance Providers Payer name Policy type / Coverage type Policy ID Covered alliance party ID Policy [place] AETNA AETNA AETNA Encounters Encounter Performer Location Date Lab Report David Cruz MD [facility] August 05, 2014 Problems Problem Effective Dates Problem Status FH DIABETES - DM Inactive FH STROKE Inactive HYPERCHOLESTEROLEMIA Active POLYNEUROPATHY IN DIABETES Jul 01, 2013 [...] Active ONYCHOMYCOSIS, TOENAILS Dec 20, 2013 Active DIABETES MELLITUS, TYPE II, WITH RETINOPATHY May 23, 2014 Active NONPROLIFERATIVE DIABETIC RETINOPATHY NOS May 23, 2014 Active Procedures Date Description Comments Jul [...] 16, 2014 Active JANUMET XR 50-1000 MG [id number] 1 tablet twice daily May 16, 2014 [...] 3 total doses May 16, 2014 Active IRBESARTAN 150 MG TABS one by mouth [...] RATE 79 /min Dec 20, 2013 weight Darcy&Aron - 3141-9 WEIGHT 209 lb Dec 20, 2013 temperature E&M TEMPERATURE 96.1 deg f Dec 20, 2013 blood pressure, systolic - 8480-6 BP SYSTOLIC 139 mm Hg Dec 20, 2013 blood pressure, diastolic - 8462-4 BP DIASTOLIC 81 mm Hg Dec 20, 2013 pulse rate E&M - 8867-4 PULSE RATE 82 /min May 16, 2014 weight Darcy&Aron - 3141-9 WEIGHT 209 lb May 16, 2014 temperature E&M TEMPERATURE 97.8 deg f May 16, 2014 blood pressure, systolic - 8480-6 BP SYSTOLIC 143 mm Hg May 16, 2014 blood pressure, diastolic - 8462-4 BP DIASTOLIC 69 mm Hg May 16, 2014 pulse rate E&M - 8867-4 PULSE RATE 80 /min August 06, 2014 weight Darcy&Aron - 3141-9 WEIGHT 204 lb August 06, [...]
--- OUTSIDE RECORDS SUMMARY | 2018-03-02 11:14 | XMS REPORT | Continuity of Care Document ---
Author Author [facility] Organization [facility] Address Unknown Phone Unavailable Care Team Providers Care Seed Analysis Laboratory Assistant Name Role Phone MD Anthony, aDvid WEST Unavailable Insurance Providers Payer name Policy type / Coverage type Policy ID Covered alliance party ID Policy [place] AET[employer] AETNA AETNA Encounters Encounter Performer Location Date Lab Report David Cruz MD [facility] May 16, 2014 Problems Problem Effective Dates [...] 16, 2014 Active JANUMET XR 50-1000 MG [id number] 1 tablet twice daily May 16, 2014 [...]
--- OUTSIDE RECORDS SUMMARY | 2018-03-02 11:14 | XMS REPORT | Continuity of Care Document ---
Author Author [facility] Organization [facility] Address Unknown Phone Unavailable Care Team Providers Care Stoker Installer Name Role Phone MD Anthony, David WEST Unavailable Insurance Providers Payer name Policy type / Coverage type Policy ID Covered green party ID Policy [place] AET[employer] AETNA AETNA Encounters Encounter Performer Location Date Office Visit David Cruz MD [facility] August 06, 2014 Problems Problem Effective [...] 16, 2014 Active JANUMET XR 50-1000 MG [id number] 1 tablet twice daily May 16, 2014 [...]
--- OUTSIDE RECORDS SUMMARY | 2018-03-02 11:14 | XMS REPORT | Summary of Care ---
Author Author YANCY MONSALVE M.D. Organization Unknown Address [facility] Phone Unavailable Care Team Providers Care On Site Construction Superintendent Name Role Phone YANCY MONSALVE M.D. Unavailable Unavailable Unavailable Unavailable Functional Status Name Dates Details Functional status health issues are not documented Status: Name Dates Details Cognitive status health issues are not documented Status: Problems Name Dates Details Aftercare following surgery (V58.89, Z48.89) Status: Active Left knee pain (719.46, M25.562) Status: Active Primary localized osteoarthritis of knees, bilateral (715.16, M17.0) Status: Active Right knee pain (719.46, M25.561) Status: Active Medications Name Dates Details Duexis 800-26.6 MG Oral Tablet TAKE 1 TABLET 3 TIMES DAILY PRN Days: 30; Qty: 90 X Tablet; Refill: 2 Quantity: 90 YANCY MONSALVE M.D. * Start : 12-May-2017 Active Allergies and Adverse Reactions Name Dates Details No Known Drug Allergies (Allergy) Status: Active Past Medical History Name Dates Details History of coronary atherosclerosis (V12.59, Z86.79) Status: Resolved History of diabetes mellitus (V12.29, Z86.39) Status: Resolved History of hyperlipidemia (V12.29, Z86.39) Status: Resolved History of hypertension (V12.59, Z86.79) Status: Resolved Procedures Procedure Dates Details History of CABG Completed Immunization Name Dates Details Immunizations not documented Family History Name Dates Details Family history of diabetes mellitus (V18.0, Z83.3) Comments: Family History Status: Active Family history of cerebrovascular accident (CVA) (V17.1, Z82.3) Comments: Family History Status: Active Name Dates Details Family history of myocardial infarction (V17.3, Z82.49) Status: Active Name Dates Details Family history of myocardial infarction (V17.3, Z82.49) Status: Active Social History Name Dates Details - Status: Name Dates Details Never smoker Vital Signs Date Test Result Details 9-Feb-54707:06 BP Systolic 119 mm[Hg] Status: BP Diastolic 70 mm[Hg] Status: Height 63 in Status: Heart Rate 101 /min Status: Results Date Description Value Details 12-May-20178:35 [U] XR KNEE 3 VWS BILATERAL XR KNEE 3 VWS BILATERAL Images acquired, not reported on this accession number. Plan of Care Name Dates Details Planned Observations Planned Goals not documented Planned Encounters Appointment; YANCY MONSALVE M.D. On: 09-Jun-2017 10:00 Interventions Provided Plan* Completed at Today's Appointment: * Injection * Patient Education/Instructions: * Patient Education Provided * Reassurance * Patient/Parent to call or return with any abnormal changes * Orders: * Physical Therapy * Medications: * Medications (prescribed or recommended at this visit): * - Recommend use of OTC NSAIDSOTC NSAIDS * Acetaminophen * - Topical anti-inflammatory prescribed. * Follow Up: * Return to the clinic in 1 week(s) or as needed. * Bilateral knee Orthovisc. Instructions Name Dates Details Instructions not documented Encounters Appointment; RADHA CHAPPELL M.D. Encounter Diagnosis: Problem not documented On: 11-May-2017 9:30 Appointment; YANCY MONSALVE M.D. Encounter Diagnosis: Problem not documented On: 12-May-2017 8:30 Appointment; YANCY MONSALVE M.D. Encounter Diagnosis: Problem not documented On: 02-Jun-2017 9:45
[2018-03-02 16:10] VITALS: BP 135/70
--- NOTE | 2018-03-02 17:05 | Operative Report ---
DATE OF PROCEDURE: March 02, 2018 REFERRING PHYSICIAN: Dr. Etta Servin. PROCEDURES PERFORMED: 1. Esophagogastroduodenoscopy with biopsies. 2. Colonoscopy with polypectomy. INDICATIONS FOR ESOPHAGOGASTRODUODENOSCOPY: Heartburn indigestion, nausea. INDICATIONS FOR COLONOSCOPY: Colorectal cancer screening. MEDICATION: Patient was done under MAC. Please see anesthesiologist's note. PROCEDURE: With the patient in the left lateral decubitus position, the flexible fiberoptic Olympus gastroscope was introduced into the esophagus under direct visualization without any difficulty. There was some patchy erythema noted in the distal esophagus. An extrinsic compression extending from 24 cm to 26 cm from the incisors was noted with normal overlying mucosa, suspicious for a possible extrinsic compression from an enlarged left atrium. The scope was then advanced with ease into the stomach, and the mucosa overlying the antrum and the body revealed some patchy erythema and low-grade to moderate edema, and biopsies were obtained and sent to stain for H. pylori. The pylorus was of normal contour and shape, was intubated with ease, and the scope was advanced all the way to the 2nd portion of the duodenum. The scope was then withdrawn slowly. Mucosa overlying the proximal 2nd portion appeared to be within normal limits. Some patchy intense erythema was noted in the duodenal bulb. The scope was then withdrawn back into the stomach and retroflexed, and mucosa overlying the fundus and the cardia appeared to be within normal limits. The scope was then straightened out. It was subsequently withdrawn. Patient tolerated the procedure well. IMPRESSION: 1. Distal esophagitis, mild. 2. Extrinsic compression extending from 24 to 26 cm from the incisors, ? secondary to left atrial enlargement. 3. Gastritis biopsied. Biopsies sent to stain for H. pylori. 4. Duodenitis, mild. PLAN: Follow up histology. Initiate Protonix 40 mg 1 p.o. q.a.m. a.c. Patient was then turned around and after adequate lubrication of the anal canal, a flexible fiberoptic Olympus colonoscope was inserted into the rectum with ease and advanced all the way to the cecum. Overall prep was suboptimal with scattered retained stools in the colon. The scope was then withdrawn slowly, and whatever was visualized of the mucosa overlying the cecum appeared to be within normal limits. One polyp was snared from the proximal ascending colon. Whatever was visualized of the rest of the ascending colon and transverse appeared to be within normal limits. Diverticular disease was noted to involve the distal descending and the sigmoid colon. The rectum grossly appeared to be within normal limits. The scope was then retroflexed into the distal rectum and small internal hemorrhoids were noted, none of which was actively bleeding. The scope was then straightened out. It was subsequently withdrawn. Patient tolerated procedure well. IMPRESSION: 1. Suboptimal prep. 2. Ascending colon polyp snared. 3. Diverticulosis. 4. Internal hemorrhoids, none actively bleeding. PLAN: Follow up histology. Initiate high-fiber low-fat diet. Initiate high-fiber supplement. Patient will need a followup colonoscopy in 1 to 2 years due to the suboptimal prep. Job#: [id number] EV cc:ETTA GONZALEZ MD
--- NOTE | 2018-03-02 17:13 | Operative Report ---
DATE OF PROCEDURE: March 02, 2018 ADDENDUM REFERRING PHYSICIAN: Dr. Etta Servin. PLAN: Initiate high-fiber low-fat diet. Initiate high-fiber supplement. __ESOPHAGOGASTRODUODENOSCOPY IMPRESSION: For the esophagus, starting Protonix 40 mg 1 p.o. q.a.m. a.c. Patient might benefit from a CT scan of the chest to further delineate the nature of the extrinsic compression noted in the esophagus. Job#: [id number] EV cc:ETTA GONZALEZ MD
== END | disposition home or self-care (01) ==
LOC: OR 11:10
PROVIDERS: ATTEND Internal Medicine Gastroenterology
DX: K29.70 Gastritis, unspecified, without bleeding (principal); D12.0 Benign neoplasm of cecum; K20.9 Esophagitis, unspecified; K29.80 Duodenitis without bleeding; K22.8 Other specified diseases of esophagus; K59.00 Constipation, unspecified; K57.30 Diverticulosis of large intestine without perforation or abscess without bleeding; K64.8 Other hemorrhoids; I25.810 Atherosclerosis of coronary artery bypass graft(s) without angina pectoris; K21.9 Gastro-esophageal reflux disease without esophagitis; I44.0 Atrioventricular block, first degree; E11.9 Type 2 diabetes mellitus without complications; I10 Essential (primary) hypertension; Z01.810 Encounter for preprocedural cardiovascular examination; Z01.812 Encounter for preprocedural laboratory examination; Z79.4 Long term (current) use of insulin; Z79.82 Long term (current) use of aspirin; Z79.02 Long term (current) use of antithrombotics/antiplatelets; Z68.39 Body mass index [BMI] 39.0-39.9, adult; Z95.1 Presence of aortocoronary bypass graft
CPT/HCPCS: 36415 ×2; 43239; 45385; 82948; 85025; 93005; J1980; J2250; 45378; 45384